=== PATIENT | male | born 1960 | race Caucasian/White ===

== ENCOUNTER 2023-06-09 21:05 | Emergency (ER) | payer OTHER ==
[~2023-06-09] VITALS: Ht 190.5 cm; Wt 104.3 kg
[2023-06-09 21:20] VITALS: BP 137/77
--- NOTE | 2023-06-09 21:58 | Diagnostic Imaging Report ---
EXAMINATION: Left hand radiographs. EXAM DATE: 06/09/2023 9:50 PM. COMPARISON: None available. HISTORY: Left hand pain. TECHNIQUE: 3 views. FINDINGS: There is no acute fracture, dislocation, or destructive osseous process. There is mild joint space narrowing and degenerative change at the interphalangeal joints. The soft tissues are normal. IMPRESSION: No acute osseous abnormality. Dictated by: Dictated on workstation # [id number]
--- NOTE | 2023-06-09 21:58 | Diagnostic Imaging Report ---
EXAMINATION: Left wrist radiographs. EXAM DATE: 06/09/2023 9:50 PM. COMPARISON: None available. HISTORY: Wrist pain. TECHNIQUE: 3 views. FINDINGS: There is no acute fracture, dislocation, or destructive osseous process. There is mild degenerative joint space narrowing at the 1st carpometacarpal joint. The soft tissues are normal. IMPRESSION: No acute osseous abnormality. Dictated by: Dictated on workstation # [id number]
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
== END 2023-06-09 22:11 | disposition home or self-care (01) ==
LOC: ER 21:12
DX: S63.502A Unspecified sprain of left wrist, initial encounter (principal); V53.5XXA Driver of pick-up truck or van injured in collision with car, pick-up truck or van in traffic accident, initial encounter; Y92.488 Other paved roadways as the place of occurrence of the external cause
CPT/HCPCS: 73110; 73130